=== PATIENT | male | born 1945 | race Caucasian/White ===

== ENCOUNTER 2016-10-28 08:59 | Inpatient (IN) | payer OTHER, BC ==
[2016-10-28] VITALS (10 sets, daily range): BP systolic 88–109; BP diastolic 54–66
[~2016-10-28] VITALS: Ht 182.9 cm; Wt 56.5 kg
[~2016-10-28 08:59] MED LIST: ATIVAN0.5 MG PO; BACTRIM,SEPT1 TABLET PO; CYANOCOBALAM1000 MCG PO; DEXAMETHASONE4 MG PO; DOCUSATE SODIU1 EACH PO; ENDOCET 2.5-321 EACH PO; FLAGYL250 MG PO; FLEXERIL10 MG PO; FOLIC ACID1 MG PO; GABAPENTIN100 MG PO; HEPARIN SO5000 UNITS SC; LAXATIVE5 M1 PO; LEVAQUIN500 MG PO; MEGACE20 MG PO; MOBIC7.5 MG PO; MOVE IT ALONG100 MG PO; NAPROSYN500 MG PO; NAPROXEN500 MG PO; ONDANSETRON HCL4 MG PO; OXAYDO5 MG PO; OXYCODONE HCL10 MG PO; OXYCODONE HCL5 MG PO; OXYCONTIN10 MG PO; PERCOCET 5/31 TABLET PO; PROAIR HFA8.5 GM IH; PROCHLORPERAZIN10 MG PO; SENNA PLUS TAB1 EACH PO; SPIRIVA1 INHALATI IH; ULTRAM50 MG PO; VIVLODEX5 MG PO; ZOFRAN4 MG PO; ZOLPIDEM TARTRA10 MG PO
[2016-10-28 10:14] LABS: INTER. NORMALIZED RATIO 1.2
[2016-10-28 10:21] LABS: CHLORIDE 110 mEq/L (99-109); POTASSIUM 3.8 mEq/L (3.7-5.4); SODIUM 137 mEq/L (136-147)
[2016-10-28 10:23] LABS: GLUCOSE 131 mg/dL (70-99); HEMATOCRIT 23.2 % (38.0-50.0); MCH 29.1 PG (29.0-34.0); MCHC 33.6 G/DL (30.0-36.0); MCV 86.6 FL (86-99); RBC DIS.WIDTH-CV 15.1 % (11.8-14.6); RBC DIS.WIDTH-SD 45.4 % (39-53); RED BLOOD COUNT 2.68 M/uL (4.00-5.50)
[2016-10-28 10:24] LABS: ANION GAP 9 MEQ/L (2-14)
[2016-10-28 10:25] LABS: TOTAL BILIRUBIN 0.5 mg/dL (0.0-1.0); WHITE BLOOD COUNT 46.3 K/uL (4.1-10.2)
[2016-10-28 10:27] LABS: ALKALINE PHOSPHATASE 95 IU/L (3-129); GFR ESTIMATE (CALCULATED) > 59 mL/min/
[2016-10-28 10:28] LABS: UREA NITROGEN (BUN) 38 mg/dL (9-23)
[2016-10-28 10:29] LABS: TROP-I INTERPRETATION NEGATIVE; TROPONIN-I < 0.01 ng/mL (0.0-0.30)
[2016-10-28 11:00] LABS: MEAN PLAT.VOLUME 10.9 uM^3 (9.0-12.4)
[2016-10-28 11:14] LABS: PLATELET COUNT 73 K/uL (156-360)
[2016-10-28] MEDS ORDERED: FOLIC ACID1 MG PO (13:22)
[2016-10-28] MEDS ORDERED: DEXAMETHASONE4 MG PO (13:24)
[2016-10-28] MEDS ORDERED: TRAMADOL HCL50 MG PO (13:24)
[2016-10-28] MEDS ORDERED: AMBIEN10 MG PO (13:25)
[2016-10-28] MEDS ORDERED: CALCIUM-MAGNES1 EA10 PO (13:25)
[2016-10-28 13:26] LABS: ADD MIUA? NO; BILIRUBIN NEGATIVE; BLOOD NEGATIVE; COLOR YELLOW ((YELLOW)); GLUCOSE (STRIP) NEGATIVE; KETONES NEGATIVE; LEUKOCYTES NEGATIVE; NITRITE NEGATIVE; PH, URINE 6.5 (5-8); PROTEIN (STRIP) NEGATIVE; SPECIFIC GRAVITY 1.016 (1.000-1.030); UCUL ADDED? NO; UROBILINOGEN 0.2 MG/DL (0.2-1.0)
[2016-10-28] MEDS ORDERED: VITAMIN D31000 UNI2 PO (13:27)
[2016-10-28 20:27] LABS: HEMATOCRIT 20.4 % (38.0-50.0); MCV 83.3 FL (86-99)
[2016-10-29] VITALS (14 sets, daily range): BP systolic 93–119; BP diastolic 55–68
[2016-10-29 06:36] LABS: ANION GAP 6 MEQ/L (2-14); CHLORIDE 115 MEQ/L (99-109); GFR ESTIMATE (CALCULATED) > 59 mL/min/; POTASSIUM 3.6 MEQ/L (3.7-5.4); SAMPLE HEMOLYSIS CHECK 0; SAMPLE ICTERIC CHECK 0; SAMPLE LIPEMIA CHECK 0; UREA NITROGEN (BUN) 22 mg/dL (9-23)
[2016-10-29 06:40] LABS: GLUCOSE 71 mg/dL (70-99); SODIUM 144 MEQ/L (136-147)
[2016-10-29 06:51] LABS: HEMATOCRIT 19.7 % (38.0-50.0); MCH 29.7 PG (29.0-34.0); MCHC 35.5 G/DL (30.0-36.0); MCV 83.5 FL (86-99); RBC DIS.WIDTH-CV 14.7 % (11.8-14.6); RBC DIS.WIDTH-SD 44.7 % (39-53); RED BLOOD COUNT 2.36 M/uL (4.00-5.50)
[2016-10-29 06:52] LABS: PLATELET COUNT 131 K/uL (156-360); WHITE BLOOD COUNT 32.2 K/uL (4.1-10.2)
[2016-10-29 16:04] LABS: HEMATOCRIT 25.6 % (38.0-50.0); MCV 82.6 FL (86-99)
[2016-10-29 20:25] LABS: HEMATOCRIT 25.9 % (38.0-50.0)
[2016-10-30 03:43] LABS: CHLORIDE 116 mEq/L (99-109); MAGNESIUM 1.5 mg/dL (1.3-2.7); POTASSIUM 3.2 mEq/L (3.7-5.4); SODIUM 141 mEq/L (136-147)
[2016-10-30 03:45] LABS: GLUCOSE 84 mg/dL (70-99)
[2016-10-30 03:46] LABS: ANION GAP 4 MEQ/L (2-14)
[2016-10-30 03:47] VITALS: BP 93/58
[2016-10-30 03:49] LABS: GFR ESTIMATE (CALCULATED) > 59 mL/min/
[2016-10-30 03:50] LABS: UREA NITROGEN (BUN) 9 mg/dL (9-23)
[2016-10-30 03:55] LABS: HEMATOCRIT 24.8 % (38.0-50.0); MCH 28.9 PG (29.0-34.0); MCHC 35.1 G/DL (30.0-36.0); MCV 82.4 FL (86-99); RBC DIS.WIDTH-CV 15.2 % (11.8-14.6); RBC DIS.WIDTH-SD 43.6 % (39-53)
[2016-10-30 04:05] LABS: RED BLOOD COUNT 3.01 M/uL (4.00-5.50); WHITE BLOOD COUNT 20.7 K/uL (4.1-10.2)
[2016-10-30 04:32] LABS: HEMATOLOGY COMMENT 1 REV; MEAN PLAT.VOLUME 10.7 uM^3 (9.0-12.4); PLATELET COUNT 78 K/uL (156-360)
[2016-10-30 07:22] VITALS: BP 95/58
[2016-10-30 08:58] LABS: HEMATOCRIT 25.5 % (38.0-50.0); MCV 83.6 FL (86-99)
[2016-10-30 12:08] VITALS: BP 107/62
[2016-10-30 15:59] VITALS: BP 113/61
[2016-10-30 16:03] LABS: MCV 83.8 FL (86-99)
[2016-10-30 20:22] LABS: HEMATOCRIT 26.9 % (38.0-50.0); MCV 84.3 FL (86-99)
[2016-10-30 23:11] VITALS: BP 119/71
[2016-10-31] VITALS (7 sets, daily range): BP systolic 85–128; BP diastolic 42–78
[2016-10-31 06:36] LABS: HEMATOCRIT 28.9 % (38.0-50.0); MCH 28.9 PG (29.0-34.0); MCHC 34.6 G/DL (30.0-36.0); MCV 83.5 FL (86-99); MEAN PLAT.VOLUME 10.3 uM^3 (9.0-12.4); PLATELET COUNT 84 K/uL (156-360); RBC DIS.WIDTH-CV 15.8 % (11.8-14.6); RED BLOOD COUNT 3.46 M/uL (4.00-5.50); WHITE BLOOD COUNT 18.1 K/uL (4.1-10.2)
[2016-10-31 06:50] LABS: EOSINOPHIL (%) 1.6 % (0-5); EOSINOPHIL COUNT 0.3 K/uL (0-0.3); IMMATURE GRANULOCYTE (%) 1.1 % (0.0-0.7); IMMATURE GRANULOCYTE COUNT 0.2 K/uL; LYMPHOCYTE COUNT 0.9 K/uL (1.0-2.8); MONOCYTE (%) 10.5 % (3-12); MONOCYTE COUNT 1.9 K/uL (0-0.8); NEUTROPHIL (%) 81.4 % (45-76); NEUTROPHIL COUNT 14.8 K/uL (1.8-6.4)
[2016-10-31 07:06] LABS: ANION GAP 9 MEQ/L (2-14); CHLORIDE 110 MEQ/L (99-109); GFR ESTIMATE (CALCULATED) > 59 mL/min/; MAGNESIUM 1.5 mg/dl (1.3-2.7); POTASSIUM 3.4 MEQ/L (3.7-5.4); SAMPLE HEMOLYSIS CHECK 0; SAMPLE ICTERIC CHECK 0; SAMPLE LIPEMIA CHECK 0; SODIUM 142 MEQ/L (136-147); UREA NITROGEN (BUN) 6 mg/dL (9-23)
[2016-10-31 07:13] LABS: GLUCOSE 107 mg/dL (70-99)
[2016-10-31 07:50] LABS: ABS NEUTROPHIL COUNT 15.42; EOSINOPHIL ABS CT 0.54; PLAT.SUFFICIENCY DECREASED; USER ID CL
[2016-10-31 20:03] LABS: HEMATOCRIT 27.4 % (38.0-50.0); MCV 83.3 FL (86-99)
[2016-11-01 03:00] VITALS: BP 121/68
[2016-11-01 06:37] LABS: MEAN PLAT.VOLUME 10.4 uM^3 (9.0-12.4); NRBC (%) 0.2 /100 WBC (0-0); PLATELET COUNT 104 K/uL (156-360)
[2016-11-01 07:00] VITALS: BP 98/62
[2016-11-01 07:00] LABS: ANION GAP 7 MEQ/L (2-14); CHLORIDE 112 MEQ/L (99-109); GFR ESTIMATE (CALCULATED) > 59 mL/min/; GLUCOSE 89 mg/dL (70-99); POTASSIUM 3.1 MEQ/L (3.7-5.4); SAMPLE HEMOLYSIS CHECK 0; SAMPLE ICTERIC CHECK 0; SAMPLE LIPEMIA CHECK 0; SODIUM 143 MEQ/L (136-147); UREA NITROGEN (BUN) 3 mg/dL (9-23)
[2016-11-01 07:09] LABS: EOSINOPHIL (%) 0.7 % (0-5); EOSINOPHIL COUNT 0.2 K/uL (0-0.3); HEMATOCRIT 28.3 % (38.0-50.0); IMMATURE GRANULOCYTE (%) 3.7 % (0.0-0.7); IMMATURE GRANULOCYTE COUNT 1.2 K/uL; LYMPHOCYTE COUNT 1.3 K/uL (1.0-2.8); MCH 29.2 PG (29.0-34.0); MCV 83.5 FL (86-99); MONOCYTE (%) 7.3 % (3-12); MONOCYTE COUNT 2.3 K/uL (0-0.8); NEUTROPHIL COUNT 26.3 K/uL (1.8-6.4); RBC DIS.WIDTH-CV 15.6 % (11.8-14.6); RBC DIS.WIDTH-SD 47.2 % (39-53); RED BLOOD COUNT 3.39 M/uL (4.00-5.50)
[2016-11-01 07:14] LABS: WHITE BLOOD COUNT 31.3 K/uL (4.1-10.2)
[2016-11-01 07:21] LABS: HEMATOLOGY COMMENT 1 SMEAR COMPATIBLE; USER ID SDF
[2016-11-01 07:40] VITALS: BP 129/69
[2016-11-01 12:01] VITALS: BP 109/72
[2016-11-01 15:50] VITALS: BP 125/72
[2016-11-01 19:20] VITALS: BP 113/68
[2016-11-01 20:30] LABS: HEMATOCRIT 29.4 % (38.0-50.0); MCV 83.5 FL (86-99)
[2016-11-02 00:15] VITALS: BP 111/58
[2016-11-02 04:15] VITALS: BP 124/62
[2016-11-02 06:56] LABS: MEAN PLAT.VOLUME 10.5 uM^3 (9.0-12.4); PLATELET COUNT 114 K/uL (156-360)
[2016-11-02 07:10] LABS: HEMATOCRIT 27.4 % (38.0-50.0); MCHC 34.7 G/DL (30.0-36.0); MCV 83.5 FL (86-99); RBC DIS.WIDTH-CV 15.6 % (11.8-14.6); RBC DIS.WIDTH-SD 47.2 % (39-53); RED BLOOD COUNT 3.28 M/uL (4.00-5.50)
[2016-11-02 07:13] LABS: WHITE BLOOD COUNT 36.3 K/uL (4.1-10.2)
[2016-11-02 07:31] LABS: ANION GAP 8 MEQ/L (2-14); CHLORIDE 113 MEQ/L (99-109); GFR ESTIMATE (CALCULATED) > 59 mL/min/; GLUCOSE 68 mg/dL (70-99); POTASSIUM 2.8 MEQ/L (3.7-5.4); SAMPLE HEMOLYSIS CHECK 0; SAMPLE ICTERIC CHECK 0; SAMPLE LIPEMIA CHECK 0; SODIUM 144 MEQ/L (136-147); UREA NITROGEN (BUN) 2 mg/dL (9-23)
[2016-11-02 11:48] VITALS: BP 137/64
[2016-11-02 15:21] VITALS: BP 127/63
[2016-11-02 19:20] VITALS: BP 150/70
[2016-11-02 20:00] LABS: HEMATOCRIT 30.1 % (38.0-50.0); MCV 84.1 FL (86-99)
[2016-11-03 00:20] VITALS: BP 138/68
[2016-11-03 04:20] VITALS: BP 110/59
[2016-11-03 06:50] LABS: NRBC (%) 0.2 /100 WBC (0-0)
[2016-11-03 07:14] LABS: ANION GAP 6 MEQ/L (2-14); CHLORIDE 112 MEQ/L (99-109); GFR ESTIMATE (CALCULATED) > 59 mL/min/; GLUCOSE 80 mg/dL (70-99); POTASSIUM 3.5 MEQ/L (3.7-5.4); SAMPLE HEMOLYSIS CHECK 0; SAMPLE ICTERIC CHECK 0; SAMPLE LIPEMIA CHECK 0; SODIUM 142 MEQ/L (136-147); UREA NITROGEN (BUN) 2 mg/dL (9-23)
[2016-11-03 07:36] VITALS: BP 110/64
[2016-11-03 08:24] LABS: HEMATOCRIT 30.2 % (38.0-50.0); MCH 28.9 PG (29.0-34.0); MCHC 34.1 G/DL (30.0-36.0); MCV 84.6 FL (86-99); MEAN PLAT.VOLUME 10.3 uM^3 (9.0-12.4); PLATELET COUNT 146 K/uL (156-360); RBC DIS.WIDTH-CV 16.1 % (11.8-14.6); RED BLOOD COUNT 3.57 M/uL (4.00-5.50)
[2016-11-03 08:27] LABS: WHITE BLOOD COUNT 36.8 K/uL (4.1-10.2)
[2016-11-03 08:58] LABS: EOSINOPHIL (%) 0.3 % (0-5); EOSINOPHIL COUNT 0.1 K/uL (0-0.3); HEMATOLOGY COMMENT 1 SMEAR COMPATIBLE; IMMATURE GRANULOCYTE (%) 3.7 % (0.0-0.7); IMMATURE GRANULOCYTE COUNT 1.4 K/uL; LYMPHOCYTE COUNT 1.5 K/uL (1.0-2.8); MONOCYTE (%) 4.5 % (3-12); MONOCYTE COUNT 1.6 K/uL (0-0.8); NEUTROPHIL (%) 87.2 % (45-76); NEUTROPHIL COUNT 32.1 K/uL (1.8-6.4); USER ID STC
[2016-11-03] MEDS ORDERED: PROTONIX40 MG PO (11:05)
== END 2016-11-03 12:53 | disposition home or self-care (01) | DRG 872 ==
LOC: EME → EDBD 08:59 → EME 08:59 → EDOF 13:34 → 4EAST 13:34 → EDOF 13:39 → 4EAST 16:00
PROVIDERS: Emergency Medicine; Internal Medicine; Internal Medicine Gastroenterology; Student in an Organized Health Care Education/Training Program
DX: A41.9 Sepsis, unspecified organism (principal); K92.2 Gastrointestinal hemorrhage, unspecified; D62 Acute posthemorrhagic anemia; D69.49 Other primary thrombocytopenia; C79.11 Secondary malignant neoplasm of bladder; K92.1 Melena; I95.9 Hypotension, unspecified; C34.92 Malignant neoplasm of unspecified part of left bronchus or lung; E86.1 Hypovolemia; K64.8 Other hemorrhoids; D72.829 Elevated white blood cell count, unspecified; E87.6 Hypokalemia; E83.39 Other disorders of phosphorus metabolism; R53.1 Weakness; D63.8 Anemia in other chronic diseases classified elsewhere; F17.210 Nicotine dependence, cigarettes, uncomplicated; M25.422 Effusion, left elbow; M25.421 Effusion, right elbow
CPT/HCPCS: 70450; 71010; 80048; 80053; 80069; 80202; 81003; 83605; 83735; 84100; 84132 91; 84484; 85014; 85018; 85025; 85027; 85610; 85730; 86850; 86900; 86901; 86920; 87040; 88305; 88342 TC; 93005; 93970; 94640; 94640 76; 94760; 99202; 99281; 99285; B4087; C9113; J0692; J2405; J3370; J3480; J7030; J7042; J7050; P9016; P9035